=== PATIENT | male | born 1935 | race Hispanic/Latino ===

== ENCOUNTER 2018-06-20 10:52 | Day surgery (SDC) | payer MEDICARE, OTHER ==
[2018-06-19 17:06] VITALS: BMI 28.2
[2018-06-20 11:28] LABS: BASO # 0.06 K/mm3 (0.0-2.0); BASO % 0.7 % (0.0-3.0); EOS # 0.4 (0.0-0.7); EOS % 5.1 % (1.5-5.0); GRAN # 5.49 (1.4-6.5); HEMOGLOBIN 12.6 g/dL (14.0-18.0); LYMPH # 1.8 (1.2-3.4); LYMPH % 21.9 % (22.0-35.0); MEAN CELL VOLUME 90.5 fl (80.0-105.0); MEAN CORPUSCULAR HEMOGLOBIN 29.8 pg (25.0-35.0); MEAN CORPUSCULAR HGB CONC 32.9 g/dl (31.0-37.0); MEAN PLATELET VOLUME 11.5 fl (7.0-11.0); MONO # 0.4 (0.1-0.6); MONO % 5.3 % (1.0-6.0); RBC 4.23 10^6/uL (3.5-6.1); RED CELL DISTRIBUTION WIDTH 13.8 % (11.5-14.5); WHITE BLOOD COUNT 8.2 10^3/ul (4.5-11.0)
[2018-06-20 11:40] LABS: INR 1.05; PARTIAL THROMBOPLASTIN TIME 28.7 Seconds (25.1-36.5); PROTHROMBIN TIME 12.1 SECONDS (9.4-12.5)
[2018-06-20] MEDS ORDERED: Lidocaine PF 2% (5 ml) Inj (For Cardiac Arrhy) ONE ×3 (12:27→14:15)
[2018-06-20] MEDS ORDERED: Iodixanol 320 MG/ML 200 ML BOTTLE IV ONE (12:28)
[2018-06-20] MEDS ORDERED: Midazolam 2 MG/2 ML VIAL ONE (13:30)
[2018-06-20] MEDS ORDERED: Iodixanol 320 MG/ML 100 ML BOTTLE IV ONE ×3 (14:25→15:15)
[2018-06-20] MEDS ORDERED: Oxycodone/Acetaminophen 5/325 mg Tab PO PRN (15:41)
[2018-06-20] MEDS: Insulin Lispro 1 UNITS/0.01 ML SC SCH (18:11)
--- NOTE | 2018-06-20 20:36 | VASCULAR ---
PROCEDURE: 1. Left AV fistula angioplasty. 2. Percutaneous left AV fistula balloon thrombectomy. 3. Central venous angioplasty and stent graft placement. 4. Snare retrieval of fractured balloon and guidewire via right common femoral vein. HISTORY: End-stage renal disease. Malfunctioning AV access PHYSICIAN(S): Himanshu Akbar MD. TECHNIQUE: The relative risks and indications of the procedure were explained to the patient and consent obtained. The patient was placed supine on the angiography table and the left arm prepped and draped in usual sterile fashion. Conscious sedation and monitoring provided throughout the procedure by a nurse. The right arm AV fistula was punctured near the elbow in an antegrade direction with a micropuncture set under ultrasound guidance. A 5 Malagasy catheter was placed. An overlapping left upper extremity AV fistula angiogram was performed. Central venous imaging was obtained. Pressure was applied near the access site and reflux of the arterial anastomosis performed. The diminutive left cephalic vein with multiple stenoses was crossed with an angled glidewire and 5 Malagasy catheter. 0.035 support wire was placed in the IVC. Exchange is made for a 6 Malagasy sheath. The axillo subclavian vein was dilated with an 8 mm balloon. The mid left cephalic vein was also dilated with the 8 mm balloon. Rupture was noted involving the left cephalic vein near its anastomosis with the axillary segment. Angioplasty balloon burst ir inflation to 18 atmospheres. The balloon fragmented in the guidewire was not retrievable from the left upper extremity. The right groin was prepped and draped usual sterile fashion. 1 percent xylocaine was used anesthetize skin soft tissues. A 7 Malagasy 90 cm sheath was placed on the right. A 20 mm snare was used to engage the entrapped guidewire in the IVC. The 7 Malagasy sheath was advanced over the guidewire with the help of the snare. The guidewire and balloon fragment were retrieved from the right groin. The left AV fistula was punctured for a 2nd time. This revealed thrombus and occlusion of the left cephalic vein. Carefully a Glidewire was advanced through the occlusion. The wire was advanced centrally. Exchange is made for 0.018 guidewire. A 7 mm by 100 mm Viabahn stent graft was deployed at the axillo subclavian segment. In a coaxial fashion 7 mm x 150 balloon was deployed in the proximal and mid left cephalic vein. A cutting balloon was necessary in the proximal left cephalic vein. Percutaneous thrombectomy of the thrombus in the left cephalic vein was treated with a balloon thrombectomy. A 7 mm Conquest balloon was utilized. Brisk flow was re-established FINDINGS: The patient's left brachial cephalic fistula is patent with 2 pseudoaneurysms proximally. The left subclavian outflow is diminutive with multiple areas of severe stenoses. Multiple levels of collaterals to the left basilic system are seen. The left axillo subclavian segment is diminutive. The left subclavian vein, left innominate vein, and SVC are widely patent. IMPRESSION: 1. Rupture of the left axillo subclavian vein and mid left cephalic vein with 8 mm balloon angioplasty. Successful treatment with overlapping Viabahn stent graft placement. 2. Balloon thrombectomy of the left cephalic vein fistula. 3. Retrieval of fractured balloon and embolized guidewire from the right common femoral vein as described above.
[2018-06-20] MEDS ORDERED: Dextrose 50% SYRINGE Inj (50 ml) ONE (21:48)
[2018-06-20] MEDS ORDERED: TERAZOSIN HCL 10 MG PO SCH (22:00)
[2018-06-21] MEDS: Insulin Detemir 100 units/ml Vial (Levemir) SC SCH ×3 (01:43→09:37)
[2018-06-21 01:50] VITALS: RESP 19
[2018-06-21 06:43] VITALS: BP 142/57; TEMP 98.5; O2SAT 97
[2018-06-21 07:26] LABS: HEMOGLOBIN 10.8 g/dL (14.0-18.0); MEAN CELL VOLUME 89.5 fl (80.0-105.0); MEAN CORPUSCULAR HEMOGLOBIN 29.2 pg (25.0-35.0); MEAN CORPUSCULAR HGB CONC 32.6 g/dl (31.0-37.0); RBC 3.7 10^6/uL (3.5-6.1); RED CELL DISTRIBUTION WIDTH 13.9 % (11.5-14.5); WHITE BLOOD COUNT 9.9 10^3/ul (4.5-11.0)
[2018-06-21] MEDS: Insulin Lispro 1 UNITS/0.01 ML SC SCH ×2 (07:34→17:10)
[2018-06-21 07:44] LABS: ALB/GLOB RATIO 1.2 (1.1-1.8); ALBUMIN 3.2 g/dL (3.0-4.8); CALCIUM 8.8 mg/dL (8.4-10.5)
[2018-06-21 15:09] VITALS: PULSE 80
--- NOTE | 2018-06-22 11:40 | PN ---
DATE: 06/21/2018 DIALYSIS PROGRESS NOTE SUBJECTIVE: This 83-year-old male is dialyzing in the [facility] Renal Dialysis Unit this 06/21/2018. His nurse is Snow Wellington, registered nurse. As discussed with Snow, at present blood pressure is 92/48, pulse is 83. The patient will only have 1 kg of fluid removed as tolerated and at present, his blood flow rates of 350 mL per minute. Hemoglobin is 10.8, hematocrit 33.1, BUN 57, creatinine 6.1. He will complete his dialysis today, be readied for discharge and have his next hemodialysis treatment in the outpatient unit on 06/23/2018. The above was reviewed with Snow and the patient. All questions were answered. Casie Zepeda MD MTDD
--- NOTE | 2018-06-22 12:36 | CON ---
DATE: 06/21/2018 NEPHROLOGY CONSULTATION HISTORY OF PRESENT ILLNESS: This 83-year-old male was examined at his bedside. He was admitted with a thrombosed left upper extremity AV fistula. Under the direction of Dr. Himanshu Akbar, medical doctor, he underwent a left AV fistula angioplasty with a percutaneous left AV fistula balloon thrombectomy, central venous angioplasty with stent graft placement and a snare retrieval of fractured balloon and guidewire via the right common femoral vein. PAST MEDICAL HISTORY: Significant for chronic renal failure, hemodialysis dependent. He is on hemodialysis on Tuesday, Wednesdays and Fridays. He has comorbidities of insulin-dependent diabetes mellitus, obesity, hypertension, hyperlipidemia, atherosclerotic heart disease status post six coronary artery stents, hyperlipidemia, hyperphosphatemia, and degenerative arthritis. OUTPATIENT MEDICATIONS: Include Humalog and Humulin insulin, Hytrin, Zocor, Lopressor, TriCor, PhosLo, Ecotrin and Norvasc. ALLERGIES: THE PATIENT HAS NO KNOWN ALLERGIES TO MEDICATION. SOCIAL HISTORY: He is a current nondrinker, nonsmoker, non IV drug misuser. He is a practicing electrician radio. FAMILY HISTORY: Noncontributory. REVIEW OF SYSTEMS: CONSTITUTIONAL REVIEW: Denied fever or chills. HEAD REVIEW: No headache or seizure. EYES REVIEW: No change in visual acuity. EAR REVIEW: No hearing loss. THROAT REVIEW: No swallowing difficulty. NECK REVIEW: No stiffness. CARDIAC REVIEW: As per HPI. PULMONARY: No cough. No hemoptysis. GI: No hematemesis. No melena. : No dysuria. He still makes urine despite being on dialysis. VASCULAR: No claudication. PSYCHOLOGICAL: Chronic anxiety. NEUROLOGICAL: No knowledge of stroke. ENDOCRINOLOGICAL: He has hyperlipidemia and insulin-dependent diabetes mellitus. PHYSICAL EXAMINATION: VITAL SIGNS: On the cardiac alcantara, he was noted to have a temperature of 98.5, respirations 19, pulse 74 and blood pressure 142/57 with a pulse ox of 97% on room air. HEENT: Head: Normocephalic, atraumatic. Eyes: No icterus. Ears: Clear. Throat: Noninjected. NECK: Supple. HEART: Regular S1, S2. No pathological rubs, murmurs or gallops. LUNGS: Clear. ABDOMEN: Obese. No palpable organomegaly. No rebound. No guarding. No tenderness. EXTREMITIES: No edema. SKIN: Without rash. NEUROLOGICAL: Intact. PSYCHOLOGICAL: Alert. VASCULAR: Left upper extremity has an excellent bruits and thrill status post his AV fistula angioplasty and thrombectomy. LABORATORY DATA: White count 9900, hemoglobin 10.8, hematocrit 33.1, platelets 165,000. PT/INR 1.05, PTT 28.7. Sodium 137, K 4.2, chloride 102, bicarb 24, BUN 57, creatinine 6.1, random blood sugar was 78. Bilirubin 0.5, AST 21, ALT 20 and alkaline phosphatase 49. IMPRESSION AND PLAN: An 83-year-old male with chronic renal failure, hemodialysis dependent who dialyzes at [facility] Tuesday, Tuesday, Tuesday, but is in need of dialysis today as an inpatient given yesterday's percutaneous left AV fistula balloon thrombectomy, angioplasty, stent graft placement and snare retrieval of fractured balloon and guidewire via his right common femoral vein. The patient's blood count remains stable. His electrolytes were noted. He will be scheduled for hemodialysis today and based on Dr. Himanshu Akbar's recommendation, will be readied for discharge post dialysis. Greater than 75 minutes was spent in the care management, review of labs, orders, x-rays and discussion of this patient with himself, family, nursing and Dr. Akbar. All questions were answered. Casie Zepeda MD ROGELIO
--- NOTE | 2018-06-22 15:21 | PN ---
DATE: 06/21/2018 DIALYSIS PROGRESS NOTE SUBJECTIVE: This 83-year-old male, was examined in the [facility] Inpatient Renal Dialysis Unit and his case was reviewed in detail with nurse, Snow Wellington, registered nurse. The patient is dialyzing on F160, 140 sodium, 2K bicarb bath. Blood flow rates are 400 mL per minute via his left AV fistula. PHYSICAL EXAMINATION: VITAL SIGNS: Blood pressure 141/65, pulse is 78. HEART: Regular S1, S2. LUNGS: Clear. Patient will dialyze for 3-1/2 hours today. Casie Zepeda MD MTDD
== END 2018-06-21 18:10 | disposition home or self-care (01) ==
LOC: SDSVAS 10:52 → 2RSO 17:30 → SDSVAS 06-21 18:10
PROVIDERS: ATTEND Radiology Vascular & Interventional Radiology
DX: T82.868A Thrombosis due to vascular prosthetic devices, implants and grafts, initial encounter (principal); T82.898A Other specified complication of vascular prosthetic devices, implants and grafts, initial encounter; N18.6 End stage renal disease; E11.22 Type 2 diabetes mellitus with diabetic chronic kidney disease; I12.0 Hypertensive chronic kidney disease with stage 5 chronic kidney disease or end stage renal disease; Z99.2 Dependence on renal dialysis; Y83.2 Surgical operation with anastomosis, bypass or graft as the cause of abnormal reaction of the patient, or of later complication, without mention of misadventure at the time of the procedure; E78.5 Hyperlipidemia, unspecified; Z95.5 Presence of coronary angioplasty implant and graft
CPT/HCPCS: 36010; 36415 ×2; 36905; 36908; 37197; 80048; 80053; 82948 ×2; 85025; 85027; 85610; 85730; 99152; 99153; C1725 ×5; C1769 ×6; C1876 ×2; C1887 ×2; C1892; C1894 ×5; J0690; J1644 ×2; J2250; J2405; J3010; Q9966; Q9967

== ENCOUNTER 2019-01-31 20:26 | Emergency (ER) | payer MEDICARE, OTHER ==
[2019-01-31 20:27] VITALS: BMI 28.2
[2019-01-31 20:32] VITALS: TEMP 98.1
--- NOTE | 2019-01-31 20:43 | ED PDOC ---
Arrival/HPI - General Chief Complaint: Abnormal Skin Integrity Time Seen by Provider: 01/31/19 20:30 Historian: Patient - History of Present Illness Narrative History of Present Illness (Text): 01/31/19 20:43 Krishna Boyle is an 84 year old male, whose past medical history includes ESRD on hemodialysis (M/W/F), IDDM, hypertension, hyperlipidemia, CABG, CAD with 6 cardiac stents, and degenerative arthritis, who presents to the ED complaining of bleeding from left arm AV fistula site. Patient states he was fully dialyzed today without issue but developed bleeding from his left arm AV fistula site this evening. Family states patient recent had the [id number] changed and note this has occurred once before. Pressure dressing applied EMS. Patient states he is not on any anti-coagulation at this time. Patient denies any fever, chills, chest pain, shortness of breath, nausea, vomiting, diarrhea, urinary symptoms, back pain, neck pain, headache, dizziness, or any other complaints. PMD: Dr. Zepeda Symptom Onset: Gradual Symptom Course: Unchanged Activities at Onset: Light Context: Home Past Medical History - Provider Review Nursing Documentation Reviewed: Yes Primary Care Provider: Casie Zepeda - Past History Past History: Non-Contributing - Infectious Disease Hx of Infectious Diseases: None - Cardiac Hx Pacemaker: No - Pulmonary Hx Respiratory Disorders: No - Neurological Hx Paralysis: No - HEENT Hx HEENT Disorder: Yes Other/Comment: KIVALINA - Renal Hx Renal Disorder: Yes Hx Dialysis: Yes Date of Last Dialysis Treatment: 07/30/16 - Endocrine/Metabolic Hx Endocrine Disorders: Yes Hx Diabetes Mellitus Type 1: Yes - Hematological/Oncological Hx Blood Transfusions: No Hx Blood Transfusion Reaction: No - Integumentary Hx Dermatological Disorder: No - Musculoskeletal/Rheumatological Hx Musculoskeletal Disorders: No - Gastrointestinal Hx Gastrointestinal Disorders: No - Genitourinary/Gynecological Hx Genitourinary Disorders: No - Psychiatric Hx Emotional Abuse: No Hx Physical Abuse: No Hx Substance Use: No - Anesthesia Hx Anesthesia Reactions: No Hx Malignant Hyperthermia: No - Suicidal Assessment Feels Threatened In Home Enviroment: No Family/Social History - Physician Review Nursing Documentation Reviewed: Yes Family/Social History: Unknown Family HX Smoking Status: Never Smoked Hx Alcohol Use: No Hx Substance Use: No Allergies/Home Meds Allergies/Adverse Reactions: Allergies No Known Allergies Allergy (Verified 06/19/18 16:51) Home Medications: Home Meds Medication Instructions Recorded Confirmed Aspirin [Aspir 81] 81 mg PO QAM 03/25/14 01/31/19 Insulin Glargine,Hum.rec.anlog 10 unit SC HS 03/25/14 01/31/19 [Lantus] Simvastatin 40 mg PO HS 03/25/14 01/31/19 Amlodipine Besylate [Norvasc] 5 mg PO QAM 03/15/16 01/31/19 Calcium Acetate [Phoslo] 667 mg PO WM 03/15/16 01/31/19 Fenofibrate Nanocrystallized 145 mg PO DAILY 03/15/16 01/31/19 [Fenofibrate] Insulin Lispro [Humalog] 20 units SQ ACBD 03/15/16 01/31/19 Metoprolol Tartrate [Lopressor] 50 mg PO BID 03/15/16 01/31/19 Terazosin HCl 10 mg PO HS 03/15/16 01/31/19 Review of Systems - Physician Review All systems were reviewed & negative as marked: Yes - Review of Systems Constitutional: Normal. absent: Fevers Eyes: Normal ENT: Normal Respiratory: Normal. absent: SOB, Cough Cardiovascular: Normal. absent: Chest Pain Gastrointestinal: Normal. absent: Abdominal Pain, Diarrhea, Nausea, Vomiting Genitourinary Male: Normal. absent: Dysuria, Frequency, Hematuria, Urinary Output Changes Musculoskeletal: Normal. absent: Back Pain, Neck Pain Skin: Other (+bleeding from left arm AV fistula). absent: Rash Neurological: Normal. absent: Headache, Dizziness Endocrine: Normal Hemo/Lymphatic: Normal Psychiatric: Normal Physical Exam Vital Signs Reviewed: Yes Vital Signs Temp Pulse Resp BP Pulse Ox 01/31/19 20:29 98.1 F 95 H 15 155/68 H 98 Temperature: Afebrile Blood Pressure: Normal Pulse: Regular Respiratory Rate: Normal Appearance: Positive for: Well-Appearing, Non-Toxic, Comfortable Pain Distress: None Mental Status: Positive for: Alert and Oriented X 3 - Systems Exam Head: Present: Atraumatic, Normocephalic Pupils: Present: PERRL Extroacular Muscles: Present: EOMI Conjunctiva: Present: Normal Mouth: Present: Moist Mucous Membranes Neck: Present: Normal Range of Motion Respiratory/Chest: Present: Clear to Auscultation, Good Air Exchange. No: Respiratory Distress, Accessory Muscle Use Cardiovascular: Present: Regular Rate and Rhythm, Normal S1, S2. No: Murmurs Abdomen: No: Tenderness, Distention, Peritoneal Signs Back: Present: Normal Inspection Upper Extremity: Present: Other (Left arm AV fisutal site, no active bleeding noted). No: Cyanosis, Edema Lower Extremity: Present: Normal Inspection. No: Edema Neurological: Present: GCS=15, CN II-XII Intact, Speech Normal Skin: Present: Warm, Dry, Normal Color. No: Rashes Psychiatric: Present: Alert, Oriented x 3, Normal Insight, Normal Concentration Medical Decision Making ED Course and Treatment: 01/31/19 20:43 Impression: 84 year old male brought in for bleeding from left arm AV fistula site. Plan: -- Reassess and disposition Prior Visits: Notes and results from previous visits were reviewed. Progress Notes: 01/31/19 22:31 Pt observed in ED for recurrent bleeding from AV fistula site. No recurrent bleeding noted. Patient feels better and is in no acute distress. Patient in agreement with plan to be discharged home. Patient is stable for discharge. Patient was instructed to follow up with physician or return if symptoms worsen or new concerning symptoms arise. - Scribe Statement The provider has reviewed the documentation as recorded by the Ava Bello Provider Scribe Attestation: All medical record entries made by the Scribricky were at my direction and personally dictated by me. I have reviewed the chart and agree that the record accurately reflects my personal performance of the history, physical exam, medical decision making, and the department course for this patient. I have also personally directed, reviewed, and agree with the discharge instructions and disposition. Disposition/Present on Arrival - Present on Arrival Any Indicators Present on Arrival: No History of DVT/PE: No History of Uncontrolled Diabetes: No Urinary Catheter: No History of Decub. Ulcer: No History Surgical Site Infection Following: None - Disposition Have Diagnosis and Disposition been Completed?: Yes Diagnosis: Bleeding from dialysis shunt Disposition: HOME/ ROUTINE Disposition Time: 22:29 Patient Plan: Discharge Patient Problems: Current Active Problems Problem Status Onset Bleeding from dialysis shunt Acute Condition: GOOD Additional Instructions: Maintain arm bandage next couple of days/follow up with your doctor/any recurrent bleeding uncontrolled return immediately to the emergency room Referrals: Casie Zepeda MD [Primary Care Provider] - Follow up with primary Forms: [employer] (Swedish)
[2019-02-01 00:36] VITALS: BP 145/52; PULSE 70; RESP 18; O2SAT 100
== END 2019-01-31 22:30 | disposition home or self-care (01) ==
LOC: ED 20:26
DX: T82.838A Hemorrhage due to vascular prosthetic devices, implants and grafts, initial encounter (principal); Y84.1 Kidney dialysis as the cause of abnormal reaction of the patient, or of later complication, without mention of misadventure at the time of the procedure